=== PATIENT | male | born 1960 | race African-American/Black ===

== ENCOUNTER 2016-10-30 13:15 | Emergency (ER) | payer MEDICARE, OTHER ==
[~2016-10-30] VITALS: Ht 185.4 cm; Wt 120.2 kg
[2016-10-30] MEDS ORDERED: fentaNYL PF VIAL 100 MCG/2 ML VIAL IV PRN (13:45)
[2016-10-30 13:50] LABS: BASO % 1 % (0-3); EOS % 4 % (0-3); HEMATOCRIT 37.8 % (39.0-53.0); HEMOGLOBIN 12.4 g/dL (13.0-17.5); LYMPH # 1.5 x10^3/uL (1.0-4.8); LYMPH % 22 % (24-48); MEAN CORPUSCULAR HEMOGLOBIN 25 pg (25-35); MEAN CORPUSCULAR HGB CONC 33 g/dL (31-37); MEAN CORPUSCULAR VOLUME 77 fL (79-100); MONO % 9 % (0-9); NEUT % 65 % (31-73); PLATELET COUNT 244 x10^3/uL (140-400); RED BLOOD COUNT 4.93 x10^6/uL (4.30-5.70); RED CELL DISTRIBUTION WIDTH 15.4 % (11.5-14.5); WHITE BLOOD COUNT 6.8 x10^3/uL (4.0-11.0)
[2016-10-30 14:03] LABS: CALCIUM 8.9 mg/dL (8.5-10.1); CREATININE 1.3 mg/dL (0.7-1.3); GFR 68.6; POTASSIUM 4.7 mmol/L (3.5-5.1)
[2016-10-30 14:09] LABS: DIRECT BILIRUBIN 0.1 mg/dL (0.0-0.2); MAGNESIUM 1.9 mg/dL (1.8-2.4); TOTAL BILIRUBIN 0.2 mg/dL (0.2-1.0); TOTAL PROTEIN 7.6 g/dL (6.4-8.2)
--- NOTE | 2016-10-30 14:11 | EKG ---
[facility] [address] [place] [address] Test Date: 2016-10-30 Test Time: 13:53:51 Pat Name: NYLA SIMON Department: Room: Gender: M Bullion Weigher: : 1960 Requested By: MOREILA SHAFFER Order Number: [id number] Reading MD: Americo London Measurements Intervals [place] Rate: 80 P: 48 OK: 186 QRS: -2 QRSD: 86 T: 31 QT: 370 QTc: 430 Interpretive Statements SINUS RHYTHM LEFTWARD AXIS QRS(T) CONTOUR ABNORMALITY CONSIDER ANTEROLATERAL MYOCARDIAL DAMAGE RI6.01 Unconfirmed report Compared to ECG 10/07/2012 19:50:23 No significant changes Electronically Signed On 10-30-2016 17:48:25 CDT by Americo London
[2016-10-30 14:17] LABS: CKMB MASS 0.9 ng/mL (0.0-3.6)
--- NOTE | 2016-10-30 14:17 | RAD ---
Portable chest, 10/30/2016: History: Chest pain Comparison is made to a study from 10/07/2012. The heart size and pulmonary vascularity are normal. No pulmonary infiltrates are seen. There is no evidence of pleural fluid. IMPRESSION: No acute cardiopulmonary abnormality is detected.
--- NOTE | 2016-10-30 15:32 | PHYS DOC ---
Past Medical History Past Medical History: Asthma, Diabetes-Type II, Hypertension, Other Additional Past Medical Histor: CHRONIC LOW BACK PAIN Past Surgical History: No Surgical History Additional Information: 1 CIGARETTE A DAY Alcohol Use: None Drug Use: None Adult General Chief Complaint Chief Complaint: BACK PAIN - NO INJURY HPI HPI Patient is a 56 year old male brought to the ED by EMS with the complaint of pain. Patient states that he was at home, he checked his blood sugar and it was 265. He checked his blood pressure and it was "over to digits". He states "I lost my balance and hit the floor". He denies passing out. He has pain that he believes actually started before he fell. He has pain in both arms and both legs , maybe a bit worse on the right. He also has pain in his chest, back, both shoulders. He denies headache or neck pain. He's never had this before. He does not take medications for chronic pain. He is diabetic. Patient sees a doctor at [facility] for chronic medical follow-up. Review of Systems Review of Systems Constitutional: Denies fever or chills [] Eyes: Denies change in visual acuity, redness, or eye pain [] HENT: Denies nasal congestion or sore throat [] Respiratory: Denies cough or shortness of breath [] Cardiovascular: As in history of present illness GI: Denies abdominal pain, nausea, vomiting, bloody stools or diarrhea [] : Denies dysuria or hematuria [] Musculoskeletal: As in history of present illness Integument: Denies rash or skin lesions [] Neurologic: Denies headache, focal weakness or sensory changes [] Current Medications Current Medications Current Medications Medications (Trade) Dose Ordered Sig/[facility] Start Time Stop Time Status Last Admin Dose Admin Fentanyl Citrate (Fentanyl 2ml Vial) 50 mcg PRN Q15MIN PRN 10/30/16 13:45 10/30/16 15:45 DC 10/30/16 15:12 50 MCG Allergies Allergies Allergies Coded Allergies Type Severity Reaction Last Updated Verified No Known Drug Allergies 10/30/16 No Physical Exam Physical Exam Constitutional: Well developed, well nourished, no acute distress, non-toxic appearance. Pulse ox on room air 96%, heart rate 91, blood pressure 171/82. Alert, mentating normally, warm and dry. HENT: Normocephalic, atraumatic, bilateral external ears normal, nose normal. [ ] Eyes: conjunctiva normal, no discharge. [] Neck: Normal range of motion, no stridor. [] Cardiovascular:Heart rate regular rhythm, no murmur [] Lungs & Thorax: Bilateral breath sounds clear to auscultation [] Abdomen: Bowel sounds normal, soft, no tenderness, no masses, no pulsatile masses. [] Skin: Warm, dry, no erythema, no rash. [] Extremities: No tenderness, no cyanosis, no clubbing, ROM intact, no edema. [] Neurologic: Alert and oriented X 3, normal motor function, normal sensory function, no focal deficits noted. [] Current Patient Data Vital Signs Vital Signs Date Time Temp Pulse Resp B/P (MAP) Pulse Ox O2 Delivery O2 Flow Rate FiO2 10/30/16 15:36 76 18 158/79 (105) 95 Room Air 10/30/16 13:15 98.5 98.5 Lab Values Laboratory Tests Test 10/30/16 13:25 White Blood Count 6.8 x10^3/uL (4.0-11.0) Red Blood Count 4.93 x10^6/uL (4.30-5.70) Hemoglobin 12.4 g/dL (13.0-17.5) L Hematocrit 37.8 % (39.0-53.0) L Mean Corpuscular Volume 77 fL (79-100) L Mean Corpuscular Hemoglobin 25 pg (25-35) Mean Corpuscular Hemoglobin Concent 33 g/dL (31-37) Red Cell Distribution Width 15.4 % (11.5-14.5) H Platelet Count 244 x10^3/uL (140-400) Neutrophils (%) (Auto) 65 % (31-73) Lymphocytes (%) (Auto) 22 % (24-48) L Monocytes (%) (Auto) 9 % (0-9) Eosinophils (%) (Auto) 4 % (0-3) H Basophils (%) (Auto) 1 % (0-3) Neutrophils # (Auto) 4.4 x10^3uL (1.8-7.7) Lymphocytes # (Auto) 1.5 x10^3/uL (1.0-4.8) Monocytes # (Auto) 0.6 x10^3/uL (0.0-1.1) Eosinophils # (Auto) 0.3 x10^3/uL (0.0-0.7) Basophils # (Auto) 0.0 x10^3/uL (0.0-0.2) D-Dimer (Renetta) 0.47 ug/mlFEU (0.00-0.50) Sodium Level 140 mmol/L (136-145) Potassium Level 4.7 mmol/L (3.5-5.1) Chloride Level 104 mmol/L (98-107) Carbon Dioxide Level 28 mmol/L (21-32) Anion Gap 8 (6-14) Blood Urea Nitrogen 18 mg/dL (8-26) Creatinine 1.3 mg/dL (0.7-1.3) Estimated GFR (Cockcroft-Gault) 68.6 Glucose Level 280 mg/dL (70-99) H Calcium Level 8.9 mg/dL (8.5-10.1) Magnesium Level 1.9 mg/dL (1.8-2.4) Total Bilirubin 0.2 mg/dL (0.2-1.0) Direct Bilirubin 0.1 mg/dL (0.0-0.2) Aspartate Amino Transferase (AST) 12 U/L (15-37) L Alanine Aminotransferase (ALT) 18 U/L (16-63) Alkaline Phosphatase 115 U/L (46-116) Creatine Kinase 173 U/L (39-308) Creatine Kinase MB (Mass) 0.9 ng/mL (0.0-3.6) Creatine Kinase MB Relative Index 0.5 % (0-4) Troponin I Quantitative < 0.017 ng/mL (0.000-0.055) XV-Suj-A-Type Natriuretic Peptide 52 pg/mL (0-124) Total Protein 7.6 g/dL (6.4-8.2) Albumin 4.0 g/dL (3.4-5.0) Lipase 265 U/L (73-393) Laboratory Tests 10/30/16 13:25 Laboratory Tests 10/30/16 13:25 EKG EKG 12-lead EKG read by mt. Sinus rhythm. Heart rate 80. There are no acute ST or T wave changes indicative of ischemia or infarction. No STEMI. 1353 [] Radiology/Procedures Radiology/Procedures View portable chest x-ray read by the radiologist. No acute cardiopulmonary findings. Course & Med Decision Making Course & Med Decision Making Pertinent Labs and Imaging studies reviewed. (See chart for details) 56-year-old male with a history of diabetes and hypertension presents to the ED with an episode of generalized pain of unclear etiology with falling down although he did not pass out. Although reportedly the pain goes down both arms and legs, it does not necessarily sound like radiculopathy. He does not have any loss of strength. He is stable on arrival. We discussed with the patient that we will check some tests and give him something for pain. He is agreeable to that plan. Labs, x-ray, EKG unremarkable. The patient remained stable in the ED with stable vital signs. Although there was no diagnosis to explain his symptoms, I do believe he is stable for discharge, I do not believe his symptoms represent any serious diagnosis. I discussed this with the patient. He is agreeable to outpatient follow-up. Patient called a family member to pick him up and ambulated without difficulty on discharge out of the ED. See instructions for plan. [] Dragon Disclaimer Dragon Disclaimer This electronic medical record was generated, in whole or in part, using a voice recognition dictation system. Departure Departure Impression: Primary Impression: Generalized pain Disposition: HOME, SELF-CARE Condition: STABLE Referrals: UNKNOWN PCP NAME (PCP) Patient Instructions: Musculoskeletal Pain Additional Instructions: Today, we did not identify any serious cause of your pain. Your blood sugar is high. Continue to take your diabetes medications as prescribed and keep a log of your blood sugar. For pain, try ibuprofen, also called Motrin or Advil. 200 mg, take 2-3 every 6 hours as needed. Drink plenty of fluids while you are taking ibuprofen. See your doctor for follow-up and treatment of diabetes and your symptoms of pain. MORELIA SHAFFER MD Oct 30, 2016 15:32
[2016-10-30 15:36] VITALS: BP 158/79
== END 2016-10-30 15:44 | disposition home or self-care (01) ==
LOC: ER 13:15
DX: M79.602 Pain in left arm (principal); M79.601 Pain in right arm; M79.604 Pain in right leg; M79.605 Pain in left leg; G89.29 Other chronic pain; I10 Essential (primary) hypertension; E11.9 Type 2 diabetes mellitus without complications; J45.909 Unspecified asthma, uncomplicated; F17.210 Nicotine dependence, cigarettes, uncomplicated
CPT/HCPCS: 36415; 71010; 80048; 80076; 82553; 83690; 83735; 83880; 84484; 85027; 85379; 93005; 96374; 99285; J3010